=== PATIENT | male | born 1990 | race Caucasian/White ===

== ENCOUNTER 2018-02-24 06:50 | Emergency (ER) | payer OTHER ==
[2018-02-24] MEDS: KETOROLAC 30 MG/ML VIAL (J1885) IV (07:27)
[2018-02-24] MEDS: ONDANSETRON 4MG/2ML VIAL (J2405) IV (07:27)
[2018-02-24] MEDS: NS 1,000 ML IV (07:27)
[2018-02-24 07:46] LABS: BASO % 0.3 % (0.0-1.0); EOS # 0.1 10^3/uL (0.0-0.50); HEMATOCRIT 44.9 % (42.0-52.0); HEMOGLOBIN 15.5 g/dl (13.5-17.5); IMMATURE GRANULOCYTE % 0.5 % (0-3.0); LYMPH # 1.2 10^3/uL (1.5-6.5); LYMPH % 19.1 % (24.0-44.0); MEAN CORPUSCULAR HGB CONC 34.5 g/dl (32.0-36.5); MONO # 0.3 10^3/uL (0.0-0.8); MONO % 4.9 % (0.0-5.0); NEUTROPHILS # 4.7 10^3/uL (1.8-7.7); NEUTROPHILS % 74.2 % (36.0-66.0); PLATELET COUNT, AUTOMATED 271 10^3/uL (150-450); RED BLOOD COUNT 5.16 10^6/uL (4.30-6.10); RED CELL DISTRIBUTION WIDTH 12.3 % (11.5-14.5); WHITE BLOOD COUNT 6.3 10^3/uL (4.0-10.0)
[2018-02-24 08:00] LABS: ANION GAP 9 MEQ/L (8-16); BLOOD UREA NITROGEN 14 MG/DL (7-18); CARBON DIOXIDE LEVEL 26 MEQ/L (21-32); CHLORIDE LEVEL 107 MEQ/L (98-107); CREATININE FOR GFR 0.98 MG/DL (0.70-1.30); GLOMERULAR FILTRATION RATE > 60.0 (>60); GLUCOSE, FASTING 111 MG/DL (70-100); POTASSIUM SERUM 3.8 MEQ/L (3.5-5.1); SODIUM LEVEL 142 MEQ/L (136-145)
[2018-02-24 08:12] LABS: BILIRUBIN, URINE MANUAL NEGATIVE (NEGATIVE); BLOOD URINE MANUAL RFX POSITIVE (NEGATIVE); GLUCOSE, URINE (UA) MANUAL NEGATIVE (NEGATIVE); KETONE, URINE MANUAL NEGATIVE (NEGATIVE); MICROSCOPIC INDICATED? RFX YES (NO); NITRITE, URINE MANUAL RFX NEGATIVE (NEGATIVE); PROTEIN, URINE MANUAL REFLEX 2+ mg/dL (NEGATIVE); SP GRAVITY,URINE MANUAL REFLEX 1.026 (1.002-1.035); UROBILINOGEN, URINE MANUAL NORMAL (NORMAL)
[2018-02-24 08:14] LABS: RBC, URINE TNTC /hpf (0-3); SQUAMOUS EPITHELIAL CELL URINE NONE SEEN /hpf (SMALL AMT); TRANSITIONAL EPI CELLS, URINE SMALL AMOUNT /hpf; WBC, URINE MAN RFX NONE SEEN /hpf (0-3)
[2018-02-24 08:15] LABS: BACTERIA, URINE NONE SEEN; HYALINE CAST, URINE NONE SEEN /lpf (0-1); MICROSCOPIC EXAM PERFORMED; MUCUS, URINE SMALL AMOUNT (NEGATIVE)
== END 2018-02-24 09:21 | disposition home or self-care (01) ==
LOC: M ED 06:50
DX: N20.0 Calculus of kidney (principal); M19.90 Unspecified osteoarthritis, unspecified site; Z91.030 Bee allergy status
CPT/HCPCS: J2405

== ENCOUNTER → 2018-02-26 | Outpatient (CLI) | payer OTHER ==
[~2018-02-26] MED LIST: CONRAY-43 43% 50ML VIAL (Q9960) As Ordered; PROHANCE 279.3MG/ML 5ML VIAL (A9576) As Ordered
== END ==
LOC: M RADPRO 06:23
DX: M25.511 Pain in right shoulder (principal); R20.2 Paresthesia of skin; M65.811 Other synovitis and tenosynovitis, right shoulder
CPT/HCPCS: 23350

== ENCOUNTER 2018-06-04 18:20 | Inpatient (IN) | payer OTHER ==
[~2018-06-04] VITALS: Ht 185.4 cm; Wt 123.0 kg
[~2018-06-04 18:20] MED LIST changes: +AMBI5TAB PO; -CONRAY-43 43% 50ML VIAL (Q9960) As Ordered; +NORCOTAB PO; -PROHANCE 279.3MG/ML 5ML VIAL (A9576) As Ordered
[2018-06-04] MEDS ORDERED: OXAZEPAM 15 MG CAP PO ONE (18:45)
[2018-06-04 19:04] LABS: HEMATOCRIT 45.4 % (42.0-52.0); HEMOGLOBIN 15.7 g/dl (13.5-17.5); MEAN CORPUSCULAR HEMOGLOBIN 30.1 pg (27.0-33.0); MEAN CORPUSCULAR HGB CONC 34.6 g/dl (32.0-36.5); PLATELET COUNT, AUTOMATED 319 10^3/uL (150-450); RED BLOOD COUNT 5.22 10^6/uL (4.30-6.10); WHITE BLOOD COUNT 7.4 10^3/uL (4.0-10.0)
[2018-06-04] MEDS ORDERED: LORazepam 2 MG TAB PO PRN (19:15)
[2018-06-04] MEDS: THIAMINE 100 MG TAB PO SCH (19:25)
[2018-06-04 19:42] LABS: ACETAMINOPHEN LEVEL < 2.0 UG/ML (10.0-30.0); ALBUMIN 4.5 GM/DL (3.2-5.2); ALT/SGPT 62 U/L (12-78); BILIRUBIN,DIRECT 0.1 MG/DL (0.0-0.2); BILIRUBIN,TOTAL 0.7 MG/DL (0.2-1.0); BLOOD UREA NITROGEN 12 MG/DL (7-18); CALCIUM LEVEL 9.1 MG/DL (8.5-10.1); CARBON DIOXIDE LEVEL 26 MEQ/L (21-32); CHLORIDE LEVEL 106 MEQ/L (98-107); CREATININE FOR GFR 0.92 MG/DL (0.70-1.30); ETHYL ALCOHOL (ETHANOL) < 0.003 % (0.000-0.010); GLOMERULAR FILTRATION RATE > 60.0 (>60); GLUCOSE, FASTING 96 MG/DL (70-100); POTASSIUM SERUM 3.9 MEQ/L (3.5-5.1); SALICYLATE LEVEL < 1.7 MG/DL (5.0-30.0); SODIUM LEVEL 140 MEQ/L (136-145); TOTAL PROTEIN 7.5 GM/DL (6.4-8.2)
[2018-06-04] MEDS: MULTIVITAMINS/MINERALS THERAP 1 TAB PO SCH (19:45)
[2018-06-04] MEDS: FOLIC ACID 1 MG TAB PO SCH (19:45)
[2018-06-04 20:07] LABS: AMPHETAMINES LEVEL URINE NEGATIVE (NEGATIVE); BARBITURATES URINE NEGATIVE (NEGATIVE); BENZODIAZEPINES URINE NEGATIVE (NEGATIVE); CANNABINOIDS URINE NEGATIVE (NEGATIVE); COCAINE METABOLITE URINE NEGATIVE (NEGATIVE); METHADONE URINE NEGATIVE (NEGATIVE); OPIATES URINE NEGATIVE (NEGATIVE); PHENCYCLIDINE URINE NEGATIVE (NEGATIVE)
[2018-06-04] MEDS ORDERED: amLODIPine 5 MG TAB PO ONE (20:15)
[2018-06-04] MEDS: amLODIPine 5 MG TAB PO SCH (21:00)
[2018-06-04] MEDS ORDERED: TYLE1TAB5 PO (21:16)
[2018-06-04] MEDS ORDERED: MELA3TAB PO (21:16)
[2018-06-04] MEDS ORDERED: NAPR-885 PO (21:16)
[2018-06-04] MEDS ORDERED: MOM 30ML SUSPENSION UDC PO PRN (21:45)
[2018-06-04] MEDS ORDERED: MAALOX 30 ML SUSP *UDC PO PRN (21:45)
[2018-06-04] MEDS ORDERED: traZODone 50 MG TAB PO PRN (21:45)
[2018-06-04 22:24] VITALS: BP 142/98
[2018-06-04] MEDS: MIRTAZAPINE 15 MG TAB PO SCH (23:33)
[2018-06-05 06:37] VITALS: BP 149/87
[2018-06-05] MEDS: NICOTINE 21MG/24HR 1 EA TRANSDERMAL TD SCH (08:56)
[2018-06-05] MEDS: ACETAMINOPHEN TAB 650MG DOSE (2X325MG) PO PRN ×2 (09:00→17:51)
[2018-06-05] MEDS: FOLIC ACID 1 MG TAB PO SCH (09:01)
[2018-06-05] MEDS: amLODIPine 5 MG TAB PO SCH ×2 (09:01→20:30)
[2018-06-05] MEDS: THIAMINE 100 MG TAB PO SCH ×2 (09:01→20:30)
[2018-06-05] MEDS: MULTIVITAMINS/MINERALS THERAP 1 TAB PO SCH (09:01)
[2018-06-05 09:06] VITALS: BP 142/86
[2018-06-05] MEDS: hydrOXYzine 25 MG TAB PO PRN ×2 (12:13→17:51)
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
[2018-06-05 17:52] VITALS: BP 138/80
[2018-06-05 18:00] VITALS: BP 138/80
[2018-06-05] MEDS: MIRTAZAPINE 15 MG TAB PO SCH (20:30)
[2018-06-05] MEDS: PRAZOSIN 1 MG CAP PO SCH (20:30)
[2018-06-05] MEDS ORDERED: DIVALPROEX 500MG *ER* TAB PO SCH (21:00)
[2018-06-06 06:40] VITALS: BP 124/67
[2018-06-06] MEDS: NICOTINE 21MG/24HR 1 EA TRANSDERMAL TD SCH (09:00)
[2018-06-06] MEDS: FOLIC ACID 1 MG TAB PO SCH (09:18)
[2018-06-06] MEDS: MULTIVITAMINS/MINERALS THERAP 1 TAB PO SCH (09:18)
[2018-06-06] MEDS: THIAMINE 100 MG TAB PO SCH ×2 (09:18→21:33)
[2018-06-06] MEDS: amLODIPine 5 MG TAB PO SCH ×2 (09:20→21:32)
[2018-06-06 09:21] VITALS: BP 134/71
[2018-06-06] MEDS: hydrOXYzine 25 MG TAB PO PRN (11:05)
[2018-06-06] MEDS: buPROPion **XL** TABLET 150MG (WELLBUTRIN XL) PO SCH (12:37)
--- NOTE | 2018-06-06 15:30 | ECGEPIP ---
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
[2018-06-06 18:00] VITALS: BP 140/88
[2018-06-06 18:01] VITALS: BP 140/90
[2018-06-06 20:59] VITALS: BP 140/90
[2018-06-06] MEDS ORDERED: zolPIDEM TARTRATE 5 MG TAB PO SCH (21:00)
[2018-06-06] MEDS: DIVALPROEX 500MG *ER* TAB PO SCH (21:33)
[2018-06-06] MEDS: PRAZOSIN 1 MG CAP PO SCH (21:34)
[2018-06-07 06:50] VITALS: BP 131/66
[2018-06-07 06:54] VITALS: BP 131/66
--- NOTE | 2018-06-07 07:07 | REP ---
Clinical: Right upper quadrant abdominal pain. Technique: [place] scale ultrasound using curved array transducer. Findings: Hepatic steatosis suggested without focal hepatic lesion identified. The pancreas is incompletely evaluated but visualized portions appear normal. The gallbladder is normal without gallstones, wall thickening or pericholecystic fluid. No biliary ductal dilatation is appreciated, and the common bile duct measures 4.0 mm diameter. The right kidney is normal in reniform shape without hydronephrosis and measures 10.8 x 6.3 x 5.7 cm. No ascites. Visualized portions of the abdominal aorta normal. Impression: Hepatic steatosis. Electronically Signed by Ghulam Jackman MD 06/07/2018 07:00 A
[2018-06-07] MEDS: NICOTINE 21MG/24HR 1 EA TRANSDERMAL TD SCH (09:00)
[2018-06-07] MEDS: buPROPion **XL** TABLET 150MG (WELLBUTRIN XL) PO SCH (09:02)
[2018-06-07] MEDS: FOLIC ACID 1 MG TAB PO SCH (09:02)
[2018-06-07] MEDS: THIAMINE 100 MG TAB PO SCH (09:02)
[2018-06-07] MEDS: MULTIVITAMINS/MINERALS THERAP 1 TAB PO SCH (09:02)
[2018-06-07] MEDS: VALSARTAN 80 MG TAB (DIOVAN) PO SCH (09:03)
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
[2018-06-07 11:33] VITALS: BP 158/94
[2018-06-07] MEDS: valACYclovir HCL 500 MG TAB PO SCH ×2 (12:49→21:01)
[2018-06-07 18:00] VITALS: BP 153/70
[2018-06-07] MEDS: QUEtiapine FUMARATE 50 MG TAB PO SCH (21:01)
[2018-06-07] MEDS: DIVALPROEX 500MG *ER* TAB PO SCH (21:02)
[2018-06-07] MEDS: PRAZOSIN 1 MG CAP PO SCH (21:03)
[2018-06-08 06:44] VITALS: BP 141/68
[2018-06-08 08:00] VITALS: BP 121/59
[2018-06-08] MEDS: FOLIC ACID 1 MG TAB PO SCH (08:37)
[2018-06-08] MEDS: valACYclovir HCL 500 MG TAB PO SCH ×2 (08:37→20:52)
[2018-06-08] MEDS: MULTIVITAMINS/MINERALS THERAP 1 TAB PO SCH (08:37)
[2018-06-08] MEDS: VALSARTAN 80 MG TAB (DIOVAN) PO SCH (08:38)
[2018-06-08] MEDS: NICOTINE 21MG/24HR 1 EA TRANSDERMAL TD SCH (08:38)
[2018-06-08] MEDS ORDERED: SERTRALINE HCL 25 MG TABLET PO SCH (09:00)
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
[2018-06-08 16:00] VITALS: BP 114/82
[2018-06-08 18:00] VITALS: BP 138/90
[2018-06-08] MEDS: DIVALPROEX 500MG *ER* TAB PO SCH (20:52)
[2018-06-08] MEDS: QUEtiapine FUMARATE 50 MG TAB PO SCH (20:52)
[2018-06-08] MEDS: PRAZOSIN 1 MG CAP PO SCH (20:53)
[2018-06-08 21:24] VITALS: BP 136/92
[2018-06-08] MEDS: hydrOXYzine 25 MG TAB PO PRN (22:11)
[2018-06-09 07:00] VITALS: BP 114/67
[2018-06-09 08:00] VITALS: BP 114/67
[2018-06-09] MEDS: valACYclovir HCL 500 MG TAB PO SCH ×2 (08:55→21:23)
[2018-06-09] MEDS: SERTRALINE HCL 50 MG TAB PO SCH (08:56)
[2018-06-09] MEDS: MULTIVITAMINS/MINERALS THERAP 1 TAB PO SCH (08:57)
[2018-06-09] MEDS: VALSARTAN 80 MG TAB (DIOVAN) PO SCH (08:57)
[2018-06-09] MEDS: FOLIC ACID 1 MG TAB PO SCH (08:57)
[2018-06-09] MEDS: NICOTINE 21MG/24HR 1 EA TRANSDERMAL TD SCH (08:57)
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
[2018-06-09] MEDS: hydrOXYzine 25 MG TAB PO PRN (14:10)
[2018-06-09 18:00] VITALS: BP 130/68
[2018-06-09] MEDS: DIVALPROEX 500MG *ER* TAB PO SCH (21:23)
[2018-06-09] MEDS: PRAZOSIN 1 MG CAP PO SCH (21:23)
[2018-06-09] MEDS: QUEtiapine FUMARATE 50 MG TAB PO SCH (21:23)
[2018-06-10 06:48] VITALS: BP 131/68
[2018-06-10 07:45] VITALS: BP 131/68
[2018-06-10] MEDS: NICOTINE 21MG/24HR 1 EA TRANSDERMAL TD SCH (08:13)
[2018-06-10] MEDS: MULTIVITAMINS/MINERALS THERAP 1 TAB PO SCH (08:15)
[2018-06-10] MEDS: FOLIC ACID 1 MG TAB PO SCH (08:15)
[2018-06-10] MEDS: SERTRALINE HCL 50 MG TAB PO SCH (08:15)
[2018-06-10] MEDS: valACYclovir HCL 500 MG TAB PO SCH ×2 (08:15→21:06)
[2018-06-10] MEDS: VALSARTAN 80 MG TAB (DIOVAN) PO SCH (08:15)
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
[2018-06-10] MEDS: hydrOXYzine 25 MG TAB PO PRN (14:43)
[2018-06-10 15:50] VITALS: BP 138/78
[2018-06-10 18:00] VITALS: BP 138/78
[2018-06-10] MEDS: DIVALPROEX 500MG *ER* TAB PO SCH (21:06)
[2018-06-10] MEDS: PRAZOSIN 1 MG CAP PO SCH (21:06)
[2018-06-10] MEDS: QUEtiapine FUMARATE 50 MG TAB PO SCH (21:06)
[2018-06-11 06:34] VITALS: BP 130/73
[2018-06-11] MEDS: SERTRALINE HCL 50 MG TAB PO SCH (08:13)
[2018-06-11] MEDS: VALSARTAN 80 MG TAB (DIOVAN) PO SCH (08:13)
[2018-06-11] MEDS: valACYclovir HCL 500 MG TAB PO SCH ×2 (08:13→20:59)
[2018-06-11] MEDS: MULTIVITAMINS/MINERALS THERAP 1 TAB PO SCH (08:13)
[2018-06-11] MEDS: FOLIC ACID 1 MG TAB PO SCH (08:13)
[2018-06-11] MEDS: NICOTINE 21MG/24HR 1 EA TRANSDERMAL TD SCH (08:14)
[2018-06-11 08:23] VITALS: BP 130/73
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
[2018-06-11] MEDS: hydrOXYzine 50 MG TAB PO PRN (11:55)
[2018-06-11 18:00] VITALS: BP 130/82
[2018-06-11] MEDS: PRAZOSIN 1 MG CAP PO SCH (20:59)
[2018-06-11] MEDS: DIVALPROEX 500MG *ER* TAB PO SCH (21:00)
[2018-06-11] MEDS: QUEtiapine FUMARATE 50 MG TAB PO SCH (21:00)
[2018-06-12 06:37] VITALS: BP 140/85
[2018-06-12] MEDS: valACYclovir HCL 500 MG TAB PO SCH ×2 (08:08→21:43)
[2018-06-12] MEDS: MULTIVITAMINS/MINERALS THERAP 1 TAB PO SCH (08:08)
[2018-06-12] MEDS: VALSARTAN 80 MG TAB (DIOVAN) PO SCH (08:08)
[2018-06-12] MEDS: FOLIC ACID 1 MG TAB PO SCH (08:08)
[2018-06-12] MEDS: SERTRALINE 100 MG TAB PO SCH (08:08)
[2018-06-12] MEDS: NICOTINE 21MG/24HR 1 EA TRANSDERMAL TD SCH (08:09)
[2018-06-12] MEDS: hydrOXYzine 50 MG TAB PO PRN (12:07)
[2018-06-12 18:00] VITALS: BP 140/63
[2018-06-12] MEDS: QUEtiapine FUMARATE 50 MG TAB PO SCH (21:43)
[2018-06-12] MEDS: DIVALPROEX 500MG *ER* TAB PO SCH (21:43)
[2018-06-12] MEDS: PRAZOSIN 1 MG CAP PO SCH (21:45)
[2018-06-13 06:48] VITALS: BP 118/59
[2018-06-13] MEDS: MULTIVITAMINS/MINERALS THERAP 1 TAB PO SCH (08:17)
[2018-06-13] MEDS: VALSARTAN 80 MG TAB (DIOVAN) PO SCH (08:17)
[2018-06-13] MEDS: SERTRALINE 100 MG TAB PO SCH (08:17)
[2018-06-13] MEDS: valACYclovir HCL 500 MG TAB PO SCH ×2 (08:17→21:25)
[2018-06-13] MEDS: FOLIC ACID 1 MG TAB PO SCH (08:17)
[2018-06-13] MEDS: NICOTINE 21MG/24HR 1 EA TRANSDERMAL TD SCH (08:18)
[2018-06-13] MEDS: hydrOXYzine 50 MG TAB PO PRN (09:12)
[2018-06-13 18:00] VITALS: BP 137/89
[2018-06-13] MEDS: QUEtiapine FUMARATE 50 MG TAB PO SCH (21:25)
[2018-06-13] MEDS: PRAZOSIN 1 MG CAP PO SCH (21:25)
[2018-06-13] MEDS: DIVALPROEX 500MG *ER* TAB PO SCH (21:25)
[2018-06-14 06:26] VITALS: BP 137/70
[2018-06-14] MEDS: NICOTINE 21MG/24HR 1 EA TRANSDERMAL TD SCH (08:25)
[2018-06-14 08:28] VITALS: BP 148/88
[2018-06-14] MEDS: VALSARTAN 80 MG TAB (DIOVAN) PO SCH (08:28)
[2018-06-14] MEDS: MULTIVITAMINS/MINERALS THERAP 1 TAB PO SCH (08:28)
[2018-06-14] MEDS: SERTRALINE 100 MG TAB PO SCH (08:28)
[2018-06-14] MEDS: valACYclovir HCL 500 MG TAB PO SCH ×2 (08:28→09:00)
[2018-06-14] MEDS: FOLIC ACID 1 MG TAB PO SCH (08:28)
[2018-06-14] MEDS: hydrOXYzine 50 MG TAB PO PRN (08:29)
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
[2018-06-14] MEDS ORDERED: VALA500T5 PO (09:38)
[2018-06-14] MEDS ORDERED: HYDRO50TAB PO (09:38)
[2018-06-14] MEDS ORDERED: DEPA500T2 PO (09:38)
[2018-06-14] MEDS ORDERED: QUET5TAB PO (09:38)
[2018-06-14] MEDS ORDERED: SERT-138 PO (09:38)
[2018-06-14] MEDS ORDERED: MINI1CAP PO (09:38)
== END 2018-06-14 13:00 | disposition home or self-care (01) | DRG 885 ==
LOC: M ED 18:20 → M PSY 21:41 → M ED 22:16 → M PSY 06-11 14:16
PROVIDERS: ADMIT Psychiatry & Neurology Psychiatry; ATTEND Psychiatry & Neurology Psychiatry
DX: F31.81 Bipolar II disorder (principal); F43.10 Post-traumatic stress disorder, unspecified; G47.33 Obstructive sleep apnea (adult) (pediatric); I10 Essential (primary) hypertension; R10.11 Right upper quadrant pain; Z63.5 Disruption of family by separation and divorce; Z62.810 Personal history of physical and sexual abuse in childhood; Z91.82 Personal history of military deployment; Z87.820 Personal history of traumatic brain injury; Z87.442 Personal history of urinary calculi; Z81.1 Family history of alcohol abuse and dependence; E66.9 Obesity, unspecified; Z68.35 Body mass index [BMI] 35.0-35.9, adult; Z91.030 Bee allergy status

== ENCOUNTER 2018-08-24 10:17 | Emergency (ER) | payer OTHER ==
[~2018-08-24] VITALS: Ht 185.4 cm; Wt 120.5 kg
[~2018-08-24 10:17] MED LIST changes: +DEPA500T2 PO; +HYDRO50TAB PO; +MELA3TAB PO; +MINI1CAP PO; +NAPR-885 PO; +QUET5TAB PO; +SERT-138 PO; +TYLE1TAB5 PO; +VALA500T5 PO
[2018-08-24] MEDS ORDERED: NS 1,000 ML IV ONE (11:30)
[2018-08-24] MEDS ORDERED: KETOROLAC 30 MG/ML VIAL (J1885) IV ONE (11:30)
[2018-08-24 11:32] LABS: BASO # 0.1 10^3/uL (0.0-0.2); EOS # 0.4 10^3/uL (0.0-0.50); EOS % 6.4 % (0.0-3.0); HEMATOCRIT 42.1 % (42.0-52.0); HEMOGLOBIN 14.9 g/dl (13.5-17.5); LYMPH # 1.7 10^3/uL (1.5-6.5); LYMPH % 26.9 % (24.0-44.0); MEAN CORPUSCULAR HEMOGLOBIN 30.8 pg (27.0-33.0); MEAN CORPUSCULAR HGB CONC 35.4 g/dl (32.0-36.5); MEAN CORPUSCULAR VOLUME 87.2 fl (80.0-96.0); MONO # 0.3 10^3/uL (0.0-0.8); MONO % 4.9 % (0.0-5.0); NEUTROPHILS # 3.8 10^3/uL (1.8-7.7); NEUTROPHILS % 60.5 % (36.0-66.0); PLATELET COUNT, AUTOMATED 263 10^3/uL (150-450); RED BLOOD COUNT 4.83 10^6/uL (4.30-6.10); WHITE BLOOD COUNT 6.3 10^3/uL (4.0-10.0)
[2018-08-24 12:03] LABS: BLOOD UREA NITROGEN 12 MG/DL (7-18); CALCIUM LEVEL 8.4 MG/DL (8.5-10.1); CARBON DIOXIDE LEVEL 24 MEQ/L (21-32); CHLORIDE LEVEL 110 MEQ/L (98-107); CREATININE FOR GFR 0.87 MG/DL (0.70-1.30); GLOMERULAR FILTRATION RATE > 60.0 (>60); GLUCOSE, FASTING 110 MG/DL (70-100); POTASSIUM SERUM 3.9 MEQ/L (3.5-5.1); SODIUM LEVEL 142 MEQ/L (136-145)
[2018-08-24 12:06] VITALS: BP 135/84
--- NOTE | 2018-08-24 12:12 | REP ---
CT ABDOMEN AND PELVIS WITHOUT CONTRAST: HISTORY: Right flank pain. History of kidney stone. COMPARISON CT STUDY: February 24, 2018 CT FINDINGS: Preliminary digital postal service clerk radiograph demonstrates a normal bowel gas pattern. The lung bases are clear. The liver is normal in size, homogeneous in texture. The spleen is somewhat prominent measuring up to 15.4 cm in greatest dimension. No focal splenic lesion is seen. Spleen size is unchanged. No adrenal lesion is observed. No pancreatic abnormality is noted. The gallbladder shows no abnormality. There is intrarenal nephrolithiasis bilaterally with multiple intrarenal calculi. The largest of these is a 5 mm calculus at left mid kidney level. There is no evidence of hydronephrosis on either side. There is, however, a left distal ureteral calculus in the ureterovesical junction. This measures 4 mm in greatest diameter. No bladder calculus is seen. Small and large intestinal bowel loops are normal in appearance. Normal appendix is observed in the right lower quadrant. No abdominal wall defect is seen. IMPRESSION: 1. Bilateral intrarenal nephrolithiasis. No hydronephrosis seen, however, there is a distal ureteral 4 mm calculus in the left ureterovesical junction. 2. Mildly prominent spleen, 15 cm unchanged. 3. Otherwise unremarkable CT abdomen and pelvis. Electronically Signed by Amador Cueto MD 08/24/2018 07:44 P
[2018-08-24] MEDS ORDERED: FLOM0.4C39 PO (12:24)
[2018-08-24] MEDS ORDERED: ZOFR4TAB16 PO (12:24)
[2018-08-24] MEDS ORDERED: [UNRECOGNIZED DRUG - CODE] XX (12:24)
[2018-08-24] MEDS ORDERED: NORCOTAB PO (12:43)
== END 2018-08-24 13:03 | disposition home or self-care (01) ==
LOC: M ED 10:17
DX: N20.2 Calculus of kidney with calculus of ureter (principal); Z87.442 Personal history of urinary calculi; R16.1 Splenomegaly, not elsewhere classified; I10 Essential (primary) hypertension; G47.30 Sleep apnea, unspecified; G47.00 Insomnia, unspecified; F43.10 Post-traumatic stress disorder, unspecified; F32.9 Major depressive disorder, single episode, unspecified; F41.9 Anxiety disorder, unspecified; Z87.820 Personal history of traumatic brain injury; Z91.030 Bee allergy status; Z79.899 Other long term (current) drug therapy
CPT/HCPCS: 74176; 80048; 81001; 85025; 87086; 96374; 99284; J1885

== ENCOUNTER 2018-09-14 09:57 | Emergency (ER) | payer OTHER ==
[~2018-09-14] VITALS: Ht 185.4 cm; Wt 126.0 kg
[~2018-09-14 09:57] MED LIST changes: +FLOM0.4C39 PO; +HYDR-3715 PO; -NORCOTAB PO; +ZOFR4TAB16 PO; +[UNRECOGNIZED DRUG - CODE] XX
[2018-09-14 09:58] VITALS: BP 144/89
[2018-09-14] MEDS ORDERED: TOPI200T7 PO (10:04)
[2018-09-14] MEDS ORDERED: TRAZ-163 PO (10:04)
[2018-09-14] MEDS ORDERED: NS 1,000 ML IV ONE (10:15)
[2018-09-14] MEDS ORDERED: ONDANSETRON 4MG/2ML VIAL (J2405) IV ONE (10:15)
[2018-09-14 10:40] LABS: AMORPHOUS SEDIMENT SMALL (NEGATIVE); APPEARANCE, URINE HAZY (CLEAR); BACTERIA, URINE AUTO NEGATIVE (NEGATIVE); BILIRUBIN, URINE AUTO NEGATIVE (NEGATIVE); BLOOD, URINE BLOOD NEGATIVE (NEGATIVE); COLOR, URINE YELLOW (YELLOW); GLUCOSE, URINE (UA) AUTO NEGATIVE (NEGATIVE); KETONE, URINE AUTO NEGATIVE (NEGATIVE); LEUKOCYTE ESTERASE, URINE AUTO NEGATIVE (NEGATIVE); MUCUS, URINE SMALL (NEGATIVE); NITRITE, URINE AUTO NEGATIVE (NEGATIVE); PROTEIN, URINE AUTO NEGATIVE (NEGATIVE); RBC, URINE AUTO 1 /HPF (0-3); SPECIFIC GRAVITY URINE AUTO 1.016 (1.002-1.035); SQUAMOUS EPITHELIAL CELL UR AU 0 /HPF (0-6); UROBILINOGEN, URINE AUTO 0.2 mg/dL (0.0-2.0); WBC, URINE AUTO 2 /HPF (0-3)
[2018-09-14 10:42] LABS: BASO % 0.5 % (0.0-1.0); EOS # 0.2 10^3/uL (0.0-0.50); EOS % 2.7 % (0.0-3.0); HEMATOCRIT 43.1 % (42.0-52.0); HEMOGLOBIN 15.1 g/dl (13.5-17.5); LYMPH # 1.7 10^3/uL (1.5-6.5); LYMPH % 26.5 % (24.0-44.0); MEAN CORPUSCULAR HEMOGLOBIN 30.3 pg (27.0-33.0); MEAN CORPUSCULAR VOLUME 86.4 fl (80.0-96.0); MONO # 0.4 10^3/uL (0.0-0.8); MONO % 5.8 % (0.0-5.0); NEUTROPHILS # 4.1 10^3/uL (1.8-7.7); NEUTROPHILS % 64.2 % (36.0-66.0); PLATELET COUNT, AUTOMATED 276 10^3/uL (150-450); RED BLOOD COUNT 4.99 10^6/uL (4.30-6.10); WHITE BLOOD COUNT 6.4 10^3/uL (4.0-10.0)
[2018-09-14 11:05] LABS: ALBUMIN 4.2 GM/DL (3.2-5.2); ALT/SGPT 36 U/L (12-78); AMYLASE 35 U/L (25-115); BILIRUBIN,DIRECT < 0.1 MG/DL (0.0-0.2); BILIRUBIN,TOTAL 0.5 MG/DL (0.2-1.0); BLOOD UREA NITROGEN 17 MG/DL (7-18); CALCIUM LEVEL 8.6 MG/DL (8.5-10.1); CARBON DIOXIDE LEVEL 20 MEQ/L (21-32); CHLORIDE LEVEL 113 MEQ/L (98-107); CREATININE FOR GFR 0.96 MG/DL (0.70-1.30); GLOMERULAR FILTRATION RATE > 60.0 (>60); GLUCOSE, FASTING 97 MG/DL (70-100); LIPASE 120 U/L (73-393); SODIUM LEVEL 141 MEQ/L (136-145); TOTAL PROTEIN 6.9 GM/DL (6.4-8.2)
--- NOTE | 2018-09-14 11:54 | REP ---
Abdominal right upper quadrant ultrasound: Comparison is 06/07/2018. There is no cholelithiasis, gallbladder wall thickening or pericholecystic fluid. There is no intrahepatic or extrahepatic biliary duct dilatation. The common biliary duct measures 3.8 mm in diameter. The hepatic parenchyma is echogenic compatible with hepato steatosis. There are no hepatic masses. The visualized pancreatic parenchyma is unremarkable. There is no right renal calculus, hydronephrosis, mass or cyst. The right kidney measures 10.5 x 5.6 x 5.7 cm and is normal size. Impression: Hepato steatosis. Otherwise, negative abdominal right upper quadrant ultrasound. Electronically Signed by Josse Pereira MD 09/14/2018 11:46 A
[2018-09-14] MEDS ORDERED: KETOROLAC 30 MG/ML VIAL (J1885) IV ONE (12:00)
[2018-09-14] MEDS ORDERED: PROT1TAB2 PO (12:00)
[2018-09-14] MEDS ORDERED: ONDA4TAB6 PO (12:06)
[2018-09-14] MEDS ORDERED: KETO10TAB PO (12:53)
== END 2018-09-14 12:54 | disposition home or self-care (01) ==
LOC: M ED 09:57
DX: K76.0 Fatty (change of) liver, not elsewhere classified (principal); K80.50 Calculus of bile duct without cholangitis or cholecystitis without obstruction; Z87.820 Personal history of traumatic brain injury; G47.30 Sleep apnea, unspecified; Z87.442 Personal history of urinary calculi; G47.00 Insomnia, unspecified; F43.10 Post-traumatic stress disorder, unspecified; F41.9 Anxiety disorder, unspecified; F32.9 Major depressive disorder, single episode, unspecified; Z79.899 Other long term (current) drug therapy; Z91.030 Bee allergy status
CPT/HCPCS: 36415; 76705; 80048; 80076; 81001; 82150; 83690; 85025; 96374; 96375; 99284; J1885; J2405

== ENCOUNTER → 2018-09-29 | Outpatient (CLI) | payer OTHER ==
[~2018-09-29] MED LIST changes: +KETO10TAB PO; +ONDA4TAB6 PO; +PROT1TAB2 PO; +TOPI200T7 PO; +TRAZ-163 PO
--- NOTE | 2018-09-29 11:27 | REP ---
KUB: Two views. History: Kidney calculus. No comparison KUB. Comparison is made with CT study from August 24, 2018. These CT images showed bilateral intrarenal nephrolithiasis. Findings: Tissue contrast is less than optimal for technical reasons with this radiograph. There is a faintly visible calcific opacity superimposed on each kidney, one on each side. No other urinary tract calculus is seen. Visualized bowel gas pattern is normal. Impression: There is a tiny intrarenal calculus barely visible, one in each kidney. These are less well seen than on recent CT. Electronically Signed by Amador Cueto MD 09/29/2018 11:29 A
== END ==
LOC: M RAD 08:58
PROVIDERS: ATTEND Specialist
DX: N20.0 Calculus of kidney (principal)

== ENCOUNTER 2019-01-23 14:53 | Emergency (ER) | payer OTHER ==
[~2019-01-23] VITALS: Ht 185.4 cm; Wt 129.3 kg
[~2019-01-23 14:53] MED LIST changes: +HYDR1TAB33 PO; -HYDRO50TAB PO; -MELA3TAB PO; +MELA3TAB63 PO
[2019-01-23 15:52] LABS: BASO % 0.4 % (0.0-1.0); EOS # 0.3 10^3/uL (0.0-0.50); EOS % 3.1 % (0.0-3.0); HEMATOCRIT 43.7 % (42.0-52.0); HEMOGLOBIN 15.2 g/dl (13.5-17.5); LYMPH # 1.6 10^3/uL (1.5-6.5); LYMPH % 17.2 % (24.0-44.0); MEAN CORPUSCULAR HEMOGLOBIN 30.1 pg (27.0-33.0); MEAN CORPUSCULAR HGB CONC 34.8 g/dl (32.0-36.5); MEAN CORPUSCULAR VOLUME 86.5 fl (80.0-96.0); MONO # 0.6 10^3/uL (0.0-0.8); MONO % 6.3 % (0.0-5.0); NEUTROPHILS # 6.6 10^3/uL (1.8-7.7); NEUTROPHILS % 72.4 % (36.0-66.0); PLATELET COUNT, AUTOMATED 296 10^3/uL (150-450); RED BLOOD COUNT 5.05 10^6/uL (4.30-6.10); WHITE BLOOD COUNT 9.1 10^3/uL (4.0-10.0)
[2019-01-23 16:14] LABS: BLOOD UREA NITROGEN 19 MG/DL (7-18); CALCIUM LEVEL 9.4 MG/DL (8.5-10.1); CARBON DIOXIDE LEVEL 26 MEQ/L (21-32); CHLORIDE LEVEL 106 MEQ/L (98-107); CREATININE FOR GFR 0.99 MG/DL (0.70-1.30); GLOMERULAR FILTRATION RATE > 60.0 (>60); GLUCOSE, FASTING 96 MG/DL (70-100); POTASSIUM SERUM 4.1 MEQ/L (3.5-5.1); SODIUM LEVEL 140 MEQ/L (136-145)
[2019-01-23] MEDS ORDERED: ONDANSETRON 4MG/2ML VIAL (J2405) IV ONE (17:00)
[2019-01-23] MEDS ORDERED: NS 1,000 ML IV ONE (17:00)
[2019-01-23] MEDS ORDERED: KETOROLAC 30 MG/ML VIAL (J1885) IV ONE (17:00)
[2019-01-23 17:10] LABS: ALBUMIN 4.3 GM/DL (3.2-5.2); ALT/SGPT 59 U/L (12-78); BILIRUBIN,DIRECT 0.1 MG/DL (0.0-0.2); BILIRUBIN,TOTAL 0.5 MG/DL (0.2-1.0); LIPASE 97 U/L (73-393); TOTAL PROTEIN 7.3 GM/DL (6.4-8.2)
[2019-01-23] MEDS ORDERED: ONDA4TAB6 PO (18:36)
[2019-01-23] MEDS ORDERED: NORC1TAB7 PO (18:36)
[2019-01-23] MEDS ORDERED: FLOM0.4C39 PO (18:43)
[2019-01-23 18:49] VITALS: BP 151/88
--- NOTE | 2019-01-24 11:05 | REP ---
CT ABDOMEN AND PELVIS WITHOUT CONTRAST: 01/23/2019. Clinical history: Left flank pain, history of kidney stones. Comparison: 08/24/2018 Technique: Renal stone protocol utilized. Coronal and sagittal reconstructions provided. Findings: CT abdomen: Lung bases clear. Heart not enlarged. No pericardial thickening or effusion. Liver, spleen, gallbladder, pancreas and adrenal glands were normal. There are scattered punctate calculi in upper and lower pole of the right kidney, these are nonobstructing. There is no hydronephrosis or hydroureter on the right. Largest of these is 3 mm. The left kidney shows one small stone interpolar osmany about 1-2 mm. There is very minimal hydronephrosis and hydroureter proximally on image 92 of series 201. There is a 5 mm proximal ureteral stone causing that hydronephrosis. Distal to it the remainder of that left ureter was normal. Bladder is nearly empty and there is no stone or mass. Small bowel loops and colon without acute finding. There is no ascites or free air in the abdomen and pelvis. Bone windows show lumbar and lower thoracic spine, visualized ribs all intact. CT pelvis: The bony pelvis, hips and sacrum were unremarkable. The distal colon and small bowel loops without acute findings. Distal ureters on both sides without stone or mass. Bladder empty with no stone. No ventral or inguinal hernia. Impression: 1. A 5 mm stone in the proximal left ureter about the level of the superior endplate of L4 and 8 cm below the renal pelvis. This is causing mild hydronephrosis and hydroureter above it. There is no stone distal to it. 2. A couple of punctate 1-2 mm calcifications interpolar upper pole region on the left. 3. Multiple nonobstructing small stones in the right kidney. No other finding. Electronically Signed by Geovani Jackman MD 01/24/2019 11:15 A
== END 2019-01-23 18:59 | disposition home or self-care (01) ==
LOC: M ED 14:53
DX: E86.0 Dehydration (principal); N13.2 Hydronephrosis with renal and ureteral calculous obstruction; N23 Unspecified renal colic; F33.9 Major depressive disorder, recurrent, unspecified; F43.10 Post-traumatic stress disorder, unspecified; F41.9 Anxiety disorder, unspecified; G47.00 Insomnia, unspecified; Z79.899 Other long term (current) drug therapy
CPT/HCPCS: 36415; 74176; 80048; 80076; 81001; 83690; 85025; 96361; 96374; 96375; 99284; J1885; J2405

== ENCOUNTER 2019-02-09 12:31 | Emergency (ER) | payer OTHER ==
[~2019-02-09] VITALS: Ht 185.4 cm; Wt 118.2 kg
[2019-02-09 12:31] VITALS: BP 179/115
[~2019-02-09 12:31] MED LIST changes: +NORC1TAB7 PO
[2019-02-09 13:24] LABS: BASO # 0.1 10^3/uL (0.0-0.2); BASO % 0.8 % (0.0-1.0); EOS # 0.2 10^3/uL (0.0-0.5); EOS % 3.6 % (0.0-3.0); HEMATOCRIT 43.3 % (42.0-52.0); HEMOGLOBIN 15.1 g/dl (13.5-17.5); LYMPH # 1.8 10^3/uL (1.5-5.0); LYMPH % 27.2 % (24.0-44.0); MEAN CORPUSCULAR HEMOGLOBIN 29.7 pg (27.0-33.0); MEAN CORPUSCULAR HGB CONC 34.9 g/dl (32.0-36.5); MEAN CORPUSCULAR VOLUME 85.1 fl (80.0-96.0); MONO # 0.4 10^3/uL (0.0-0.8); MONO % 6.5 % (0.0-5.0); NEUTROPHILS % 61.1 % (36.0-66.0); PLATELET COUNT, AUTOMATED 322 10^3/uL (150-450); RED BLOOD COUNT 5.09 10^6/uL (4.30-6.10); WHITE BLOOD COUNT 6.6 10^3/uL (4.0-10.0)
[2019-02-09] MEDS ORDERED: NS 1,000 ML IV ONE (13:30)
[2019-02-09] MEDS ORDERED: KETOROLAC 30 MG/ML VIAL (J1885) IV ONE (13:30)
--- NOTE | 2019-02-09 14:01 | REP ---
Clinical: Left flank pain. Technique: Axial noncontrast images from the lung bases to the pubic symphysis with coronal and sagittal re-formations. Comparison: 01/23/2019. Findings: Left kidney/ureter and bladder are normal. Right kidney includes multiple nonobstructing intrarenal calculi up to 3 mm without hydronephrosis/hydroureter or obstructing ureteral calculus. Liver, spleen, pancreas, gallbladder, and bilateral adrenal glands are normal. The enteric system is without obstruction or acute inflammatory process. Normal terminal ileum and appendix identified in the right lower quadrant. Scattered sigmoid diverticula noted without acute diverticulitis. Pelvis demonstrates normal bladder and age appropriate prostate/seminal vesicles. No ascites. No free air. No adenopathy. Abdominal aorta without aneurysm. Musculoskeletal structures are intact. Lung bases are clear. Impression: 1. Few nonobstructing right renal calculi up to 3 mm. 2. Normal left kidney/ureter and bladder. Previously identified left ureteral stone has resolved. Electronically Signed by Ghulam Jackman MD 02/09/2019 01:52 P
[2019-02-09] MEDS ORDERED: FLOM0.4C39 PO (15:28)
== END 2019-02-09 15:31 | disposition home or self-care (01) ==
LOC: M ED 12:31
DX: N20.0 Calculus of kidney (principal); R39.198 Other difficulties with micturition; Z79.899 Other long term (current) drug therapy; Z91.030 Bee allergy status; Z98.52 Vasectomy status
CPT/HCPCS: 74176; 80047; 81001; 85025; 93041; 96361; 96374; 99284; J1885